=== PATIENT | male | born 1980 | race African-American/Black ===

== ENCOUNTER 2017-01-26 16:17 | Emergency (ER) | payer OTHER ==
[~2017-01-26] VITALS: Ht 188 cm; Wt 73.0 kg
[~2017-01-26 16:17] MED LIST: DILANTIN100 MG PO
[2017-01-26 17:21] LABS: HEMATOCRIT 43.8 % (38.0-50.0); MCH 29.9 PG (29.0-34.0); MCHC 32.4 G/DL (30.0-36.0); MCV 92.2 FL (86-99); MEAN PLAT.VOLUME 9.1 uM^3 (9.0-12.4); PLATELET COUNT 210 K/uL (156-360); RBC DIS.WIDTH-CV 14.1 % (11.8-14.6); RED BLOOD COUNT 4.75 M/uL (4.00-5.50); WHITE BLOOD COUNT 6.6 K/uL (4.1-10.2)
[2017-01-26 17:41] LABS: CHLORIDE 107 mEq/L (99-109); POTASSIUM 3.7 mEq/L (3.7-5.4); SODIUM 143 mEq/L (136-147)
[2017-01-26 17:43] LABS: GLUCOSE 107 mg/dL (70-99)
[2017-01-26 17:44] LABS: ANION GAP 11 MEQ/L (2-14)
[2017-01-26 17:46] LABS: SERUM ETHYL ALCOHOL 67 mg/dL
[2017-01-26 17:47] LABS: GFR ESTIMATE (CALCULATED) > 59 mL/min/
[2017-01-26 17:49] LABS: UREA NITROGEN (BUN) 9 mg/dL (9-23)
[2017-01-26 17:50] LABS: SALICYLATE < 5.0 MG/DL (15-30)
[2017-01-26 20:14] LABS: ADD MIUA? NO; BILIRUBIN NEGATIVE; BLOOD NEGATIVE; COLOR YELLOW ((YELLOW)); GLUCOSE (STRIP) NEGATIVE; KETONES NEGATIVE; LEUKOCYTES NEGATIVE; NITRITE NEGATIVE; PROTEIN (STRIP) NEGATIVE; UCUL ADDED? NO; UROBILINOGEN 0.2 MG/DL (0.2-1.0)
[2017-01-26 21:12] LABS: ADD MEDTOX COMMENT Y; AMPHETAMINE NEGATIVE (500 ng/mL); BARBITURATES PRESUMPTIVE POSITIVE (200 ng/mL); BENZODIAZEPINES NEGATIVE (150 ng/mL); COCAINE NEGATIVE (150 ng/mL); INTERNAL CONTROLS VALID? YES; METHADONE NEGATIVE (200 ng/mL); METHAMPHETAMINE NEGATIVE (500 ng/mL); OPIATES (MORPHINE) PRESUMPTIVE POSITIVE (100 ng/mL); OXYCODONE NEGATIVE (100 ng/mL); PHENCYCLIDINE NEGATIVE (25 ng/mL); PROPOXYPHENE NEGATIVE (300 ng/mL); THC CANNABINOIDS PRESUMPTIVE POSITIVE (50 ng/mL); TRICYCLIC ANTIDEPRESSANTS NEGATIVE (300 ng/mL)
[2017-01-26] MEDS ORDERED: NARCAN4 MG NS (21:18)
[2017-01-26 21:33] VITALS: BP 121/75
[2017-01-26 21:45] LABS: BARBITUATES QUANT VALUE 0 NG/ML; OPIATES QUANTITATIVE VALUE 0 NG/ML
== END 2017-01-26 21:35 | disposition home or self-care (01) ==
LOC: EME → EDBD 16:17 → EME 16:17
DX: T40.1X1A Poisoning by heroin, accidental (unintentional), initial encounter (principal); F17.200 Nicotine dependence, unspecified, uncomplicated
CPT/HCPCS: 80048; 81003; 84999; 85027; 93005; 99281; 99284; G0480; J2310

== ENCOUNTER 2017-02-16 20:02 | Emergency (ER) | payer OTHER ==
[~2017-02-16] VITALS: Ht 188 cm; Wt 76.2 kg
[~2017-02-16 20:02] MED LIST changes: +NARCAN4 MG NS
[2017-02-16 21:30] LABS: HEMATOCRIT 42.4 % (38.0-50.0); MCHC 32.5 G/DL (30.0-36.0); MCV 92.2 FL (86-99); MEAN PLAT.VOLUME 9.2 uM^3 (9.0-12.4); PLATELET COUNT 217 K/uL (156-360); RBC DIS.WIDTH-CV 13.5 % (11.8-14.6); RBC DIS.WIDTH-SD 45.8 % (39-53); WHITE BLOOD COUNT 6.1 K/uL (4.1-10.2)
[2017-02-16 21:42] LABS: CHLORIDE 111 mEq/L (99-109); SODIUM 143 mEq/L (136-147)
[2017-02-16 21:44] LABS: GLUCOSE 94 mg/dL (70-99)
[2017-02-16 21:45] LABS: ANION GAP 11 MEQ/L (2-14)
[2017-02-16 21:46] LABS: TOTAL BILIRUBIN 0.3 mg/dL (0.0-1.0)
[2017-02-16 21:47] LABS: SERUM ETHYL ALCOHOL 76 mg/dL
[2017-02-16 21:48] LABS: ALKALINE PHOSPHATASE 49 IU/L (3-129); GFR ESTIMATE (CALCULATED) > 59 mL/min/
[2017-02-16 21:50] LABS: UREA NITROGEN (BUN) 7 mg/dL (9-23)
[2017-02-16 21:51] LABS: SALICYLATE < 5.0 MG/DL (15-30)
[2017-02-16 23:25] VITALS: BP 101/57
== END 2017-02-16 23:26 | disposition home or self-care (01) ==
LOC: EME 20:02
PROVIDERS: Emergency Medicine
DX: T50.901A Poisoning by unspecified drugs, medicaments and biological substances, accidental (unintentional), initial encounter (principal); R40.0 Somnolence; F17.200 Nicotine dependence, unspecified, uncomplicated
CPT/HCPCS: 71010; 80053; 80185; 81003; 85027; 93005; 99281; 99285; G0480

== ENCOUNTER 2017-02-25 13:30 | Emergency (ER) | payer OTHER ==
[~2017-02-25] VITALS: Ht 188 cm; Wt 75.1 kg
[2017-02-25 14:22] VITALS: BP 106/59
== END 2017-02-25 14:55 | disposition home or self-care (01) ==
LOC: EME 13:30
DX: F10.10 Alcohol abuse, uncomplicated (principal); Z03.89 Encounter for observation for other suspected diseases and conditions ruled out; R56.9 Unspecified convulsions; F17.200 Nicotine dependence, unspecified, uncomplicated
CPT/HCPCS: 99281; 99283

== ENCOUNTER 2017-03-01 00:27 | Emergency (ER) | payer OTHER ==
[~2017-03-01] VITALS: Ht 188 cm; Wt 72.3 kg
[2017-03-01 03:13] VITALS: BP 99/58
== END 2017-03-01 03:14 | disposition home or self-care (01) ==
LOC: EME 00:27
DX: F19.10 Other psychoactive substance abuse, uncomplicated (principal); F17.200 Nicotine dependence, unspecified, uncomplicated
CPT/HCPCS: 99281; 99283

== ENCOUNTER 2017-03-01 15:15 | Emergency (ER) | payer OTHER ==
[~2017-03-01] VITALS: Ht 188 cm; Wt 73.5 kg
[2017-03-01 16:21] VITALS: BP 97/56
== END 2017-03-01 16:24 | disposition left against medical advice (07) ==
LOC: EME 15:15
DX: F12.10 Cannabis abuse, uncomplicated (principal); F10.10 Alcohol abuse, uncomplicated; F17.200 Nicotine dependence, unspecified, uncomplicated; R56.9 Unspecified convulsions
CPT/HCPCS: 99281; 99283

== ENCOUNTER 2017-03-01 20:42 | Emergency (ER) | payer OTHER ==
[~2017-03-01] VITALS: Ht 188 cm; Wt 72.3 kg
[2017-03-01 21:53] VITALS: BP 102/66
== END 2017-03-01 21:54 | disposition home or self-care (01) ==
LOC: EME → EDBD 20:42 → EME 21:54
DX: T40.7X1A Poisoning by cannabis (derivatives), accidental (unintentional), initial encounter (principal); F12.10 Cannabis abuse, uncomplicated; R56.9 Unspecified convulsions; F17.200 Nicotine dependence, unspecified, uncomplicated
CPT/HCPCS: 99281; 99283

== ENCOUNTER 2017-03-02 12:06 | Emergency (ER) | payer OTHER ==
[2017-03-03] MEDS ORDERED: NARCAN4 MG NS (22:26)
== END 2017-03-02 23:21 | disposition left against medical advice (07) ==
LOC: EME 12:06
DX: T50.994A Poisoning by other drugs, medicaments and biological substances, undetermined, initial encounter (principal)
CPT/HCPCS: 99281; 99283

== ENCOUNTER 2017-03-03 21:13 | Emergency (ER) | payer OTHER ==
[~2017-03-03] VITALS: Ht 188 cm; Wt 73.5 kg
[2017-03-03 22:06] LABS: HEMATOCRIT 43.4 % (38.0-50.0); MCHC 32.5 G/DL (30.0-36.0); MCV 92.3 FL (86-99); RBC DIS.WIDTH-CV 13.6 % (11.8-14.6); RBC DIS.WIDTH-SD 46.4 % (39-53)
[2017-03-03 22:09] LABS: CHLORIDE 106 mEq/L (99-109); SODIUM 141 mEq/L (136-147)
[2017-03-03 22:11] LABS: GLUCOSE 77 mg/dL (70-99)
[2017-03-03 22:12] LABS: ANION GAP 11 MEQ/L (2-14)
[2017-03-03 22:14] LABS: SERUM ETHYL ALCOHOL 38 mg/dL
[2017-03-03 22:15] LABS: GFR ESTIMATE (CALCULATED) > 59 mL/min/
[2017-03-03 22:16] LABS: UREA NITROGEN (BUN) 9 mg/dL (9-23)
[2017-03-03 22:18] LABS: SALICYLATE < 5.0 MG/DL (15-30)
[2017-03-03] MEDS ORDERED: NARCAN4 MG NS (22:26)
[2017-03-03 23:07] LABS: ADD MIUA? NO; BILIRUBIN NEGATIVE; BLOOD NEGATIVE; COLOR STRAW ((YELLOW)); GLUCOSE (STRIP) NEGATIVE; KETONES NEGATIVE; LEUKOCYTES NEGATIVE; NITRITE NEGATIVE; PROTEIN (STRIP) NEGATIVE; SPECIFIC GRAVITY 1.003 (1.000-1.030); UCUL ADDED? NO; UROBILINOGEN 0.2 MG/DL (0.2-1.0)
[2017-03-03 23:24] VITALS: BP 107/65
[2017-03-03 23:32] LABS: AMPHETAMINE NEGATIVE (500 ng/mL); BARBITURATES PRESUMPTIVE POSITIVE (200 ng/mL); BENZODIAZEPINES NEGATIVE (150 ng/mL); COCAINE NEGATIVE (150 ng/mL); INTERNAL CONTROLS VALID? YES; METHADONE NEGATIVE (200 ng/mL); METHAMPHETAMINE NEGATIVE (500 ng/mL); OPIATES (MORPHINE) NEGATIVE (100 ng/mL); OXYCODONE NEGATIVE (100 ng/mL); PHENCYCLIDINE NEGATIVE (25 ng/mL); PROPOXYPHENE NEGATIVE (300 ng/mL); THC CANNABINOIDS PRESUMPTIVE POSITIVE (50 ng/mL); TRICYCLIC ANTIDEPRESSANTS NEGATIVE (300 ng/mL)
[2017-03-03 23:33] LABS: ADD MEDTOX COMMENT Y
[2017-03-04 00:16] LABS: PLAT.SUFFICIENCY ADEQUATE
[2017-03-04 00:17] LABS: PLATELET CLUMPS PRESENT - PLATELET C
[2017-03-04 00:55] LABS: BARBITUATES QUANT VALUE 0 NG/ML
== END 2017-03-03 23:24 | disposition home or self-care (01) ==
LOC: EME 21:13
PROVIDERS: Emergency Medicine
DX: T65.91XA Toxic effect of unspecified substance, accidental (unintentional), initial encounter (principal); R41.82 Altered mental status, unspecified; F19.10 Other psychoactive substance abuse, uncomplicated; F17.200 Nicotine dependence, unspecified, uncomplicated; Z71.6 Tobacco abuse counseling
CPT/HCPCS: 80048; 80164; 80185; 81003; 84999; 85027; 93005; 99281; 99284; G0480

== ENCOUNTER 2017-05-17 18:51 | Emergency (ER) | payer OTHER ==
[~2017-05-17] VITALS: Ht 188 cm; Wt 73.6 kg
[2017-05-17 19:29] VITALS: BP 102/74
== END 2017-05-17 19:30 | disposition home or self-care (01) ==
LOC: EME → EDBD 18:51 → EME 19:30
DX: T50.991A Poisoning by other drugs, medicaments and biological substances, accidental (unintentional), initial encounter (principal); R56.9 Unspecified convulsions; F17.200 Nicotine dependence, unspecified, uncomplicated
CPT/HCPCS: 99281; 99283